=== PATIENT | male | born 1995 | race Caucasian/White ===

== ENCOUNTER 2017-08-13 14:44 | Observation (INO) ==
[2017-08-13] MEDS ORDERED: *HR* LORazepam 2 MG/ML VIAL IM ONE ×2 (15:00→16:07)
--- NOTE | 2017-08-13 15:04 | Emergency Department Note ---
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, hypnotic or anxiolytic dependence with withdrawal with perceptual disturbance Disposition: Admitted As Inpatient Condition: Fair Referrals: NONE,PCP [Primary Care Provider] - Forms: ED Satisfaction Letter Time of Disposition: 17:56 Psych HPI - General Chief Complaint: ED Psychiatric Symptoms Stated Complaint: psych/Chest Pain Time Seen by Provider: 08/13/17 14:54 Source: patient Mode of arrival: ambulatory Limitations: altered mental status Nursing Notes Reviewed: Yes Vital Signs Reviewed: Yes - History of Present Illness HPI Narrative: 22-year-old with a previous history of traumatic brain injury when he was 13 comes in stating that he has had rapid R chest pain when he discuss it with him he says his heart pounding family members here states he's been on nerve pills for quite some time and probably ran out about 4 days ago. When he takes a next door Ativan. He presents now for evaluation. He should has also had auditory hallucinations. Pt complaint: anxiety, medical clearance request, heart racing If medical clearance, reason: psychiatric condition Onset (ago): day(s) Duration: constant (3) History of similar episodes: No Improves with: none Worsens with: none Context: significant life stressor Alleged intoxication: No Associated Psychiatric Symptoms: racing thoughts, visual hallucinations, anxiety Associated symptoms: Reports: other (Chest pain) Treatments prior to arrival: none - Related Data Allergies Allergy/AdvReac Type Severity Reaction Status Date / Time No Known Allergies Allergy Verified 08/13/17 14:52 All systems ED: reviewed and negative except as stated. Constitutional: Denies: fever, chills, weakness, weight change Eyes: Denies: eye pain, eye discharge, vision change ENT ED: Denies: ear pain, throat pain, dental pain, hearing loss, epistaxis, congestion, dysphagia Cardiovascular: Reports: chest pain, palpitations. Denies: dyspnea on exertion , edema, syncope Respiratory: Denies: cough, dyspnea, wheezes, hemoptysis, stridor Gastrointestinal: Denies: abdominal pain, nausea, vomiting, diarrhea, constipation, hematemesis, melena, hematochezia Genitourinary: Denies: urgency, dysuria, frequency, hematuria Musculoskeletal: Denies: back pain, neck pain, arthralgia, myalgia Integumentary: Denies: rash, abrasion, lesions Neurological: Denies: headache, weakness, numbness, paresthesias, confusion, abnormal gait, vertigo Psychiatric: Reports: anxiety, visual hallucinations. Denies: depression, suicidal thoughts, homicidal thoughts, auditory hallucinations Endocrine: Denies: fatigue Hematological/Lymphatic: Denies: easy bleeding, easy bruising Allergic/Immunologic: Denies: facial swelling, urticaria Past Medical History - Past Medical History Medical history: Reports: other Psychiatric history: Reports: anxiety - Social History Smoking Status: Current every day smoker Alcohol use: Reports: none Drug use: Reports: marijuana, prescription drug abuse Physical Exam - General Limitations: altered mental status General appearance: alert, in no apparent distress - Head Head exam: atraumatic, normocephalic, normal inspection - Eye Eye exam: Present: normal appearance, PERRL, EOMI - ENT ENT exam: normal exam, normal oropharynx, mucous membranes moist - Neck Neck exam: Present: normal inspection, full ROM, trachea midline - Chest Chest inspection: Present: normal inspection, symmetric chest wall rise - Respiratory Respiratory exam: Present: normal lung sounds bilaterally - Cardiovascular Cardiovascular exam: Present: regular rate, normal rhythm, normal heart sounds - Abdominal Exam Abdominal exam: Present: soft, Non-Tender. Absent: tenderness, distention, guarding, rebound, rigidity - Extremities Exam Extremities exam: Present: normal inspection, full ROM. Absent: tenderness, pedal edema - Expanded Lower Extremity Exam Neurovascular/Tendon exam: Absent: motor deficit, sensory deficit, tendon deficit Gait: not tested/not observed - Back Exam Back exam: Present: normal inspection, full ROM. Absent: tenderness - Neurological Exam Neurological exam: Present: alert, oriented X3 - Psychiatric Psychiatric exam: Present: normal affect, normal mood - Skin Skin exam: Present: warm, dry, intact, normal color Course - Reevaluation(s) Reevaluation #1: 22-year-old with history of benzodiazepine abuse who comes in not having benzos for about 4 days she's tachycardic and very anxious and jittery. Did respond to some IV Ativan here and admit him to try to wean him off the benzos. Time: 17:55 - Consultations Consultation #1: Discussed with callie Zhou. Time: 17:56 Vital Signs Temperature 97.5 F L 08/13/17 14:47 Pulse Rate 121 08/13/17 14:47 Respiratory Rate 16 08/13/17 14:47 Blood Pressure 142/91 08/13/17 14:47 O2 Sat by Pulse Oximetry 97 08/13/17 14:47 Temperature 97.5 F L 08/13/17 14:47 Pulse Rate 94 08/13/17 16:29 Respiratory Rate 14 08/13/17 16:29 Blood Pressure 123/81 08/13/17 16:29 O2 Sat by Pulse Oximetry 100 08/13/17 16:29 Oxygen Delivery Oxygen Delivery Room Air Psych - Lab Data Lab results reviewed: Yes I reviewed the patient's lab results. Result diagrams: 08/13/17 15:38 08/13/17 15:38 Lab Results 08/13/17 08/13/17 08/13/17 Range/Units 15:15 15:15 15:38 WBC 8.9 (4.3-11.1) K/mcL RBC 4.55 (4.19-5.50) M/mcL Hgb 13.0 (12.9-16.9) g/dL Hct 41.3 (37.5-50.1) % MCV 90.8 (83.0-100.0) fL MCH 28.6 (28.0-33.3) pg MCHC 31.5 L (31.6-35.5) g/dL RDW 13.1 (11.5-14.5) % Plt Count 159 (140-400) K/mcL MPV 11.6 (9.4-12.4) fL Immature Gran % 0.2 (0-4) % Seg Neutrophils % 71.3 % Lymphocytes % 20.7 % Monocytes % 7.5 % Eosinophils % 0.1 % Basophils % 0.2 % Neutrophils # 6.3 (1.6-8.9) K/mcL Lymphocytes # 1.8 (0.6-4.6) K/mcL Monocytes # 0.7 (0.0-1.3) K/mcL Eosinophils # 0.0 (0.0-0.6) K/mcL Basophils # 0.0 (0.0-0.2) K/mcL Sodium (136-145) mEq/L Potassium (3.5-4.5) mEq/L Chloride (98-109) mEq/L Carbon Dioxide (19-29) mEq/L BUN (8-26) mg/dL Creatinine (0.72-1.25) mg/dL Est GFR ( Amer) (> 60) Est GFR (Non-Af Amer) (> 60) BUN/Creatinine Ratio (6-26) Glucose (70-99) mg/dL Calculated Osmolality (280-300) Calcium (8.6-10.8) mg/dL Total Bilirubin (0.2-1.2) mg/dL Direct Bilirubin (0.0-0.5) mg/dL Indirect Bilirubin (0.0-1.2) mg/dL AST (5-34) Units/L ALT (0-55) Units/L Alkaline Phosphatase (38-126) Units/L Troponin I (0-0.03) ng/mL Serum Total Protein (6.0-8.3) g/dL Albumin (3.5-5.0) g/dL Globulin (2.4-3.5) g/dL Albumin/Globulin Ratio (1.1-2.2) Urine Color Dark Yellow (Yellow) Urine Clarity Clear (Clear) Urine pH 6.5 (5.0-8.0) pH Units Ur Specific [place] > 1.030 H (1.010-1.025) Urine Protein 30 H (Neg-Trace) mg/dL Urine Glucose (UA) Normal (Normal) mg/dL Urine Ketones 15 H (Negative) mg/dL Urine Blood Negative (Negative) Urine Nitrite Negative (Negative) Urine Bilirubin Small H (Negative) Urine Urobilinogen Normal (Normal) mg/dL Ur Leukocyte Esterase Negative (Negative) Urine Microscopic RBC 3-5 H (0-3) per hpf Urine Microscopic WBC 0-3 (0-3) per hpf Ur Squamous Epith Cells Moderate H (None-Few) per lpf Urine Bacteria None Seen (None-Few) per hpf Hyaline Casts None Seen (None-Few) per lpf Salicylates (15-30) mg/dL Urine Opiates Screen Negative (Lfbswy=665) ng/mL Acetaminophen (10-30) mcg/mL Ur Barbiturates Screen Negative (Cxtnru=655) ng/mL Ur Phencyclidine Scrn Negative (Cutoff=25) ng/mL Ur Amphetamines Screen Negative (Peaehn=0137) ng/mL U Benzodiazepines Scrn Positive H (Kogwdu=604) ng/mL Urine Cocaine Screen Negative (Cutoff= 300) ng/mL U Marijuana (THC) Screen Positive H (Cutoff = 50) ng/mL Ethyl Alcohol (0-10) mg/dL 08/13/17 08/13/17 Range/Units 15:38 15:38 WBC (4.3-11.1) K/mcL RBC (4.19-5.50) M/mcL Hgb (12.9-16.9) g/dL Hct (37.5-50.1) % MCV (83.0-100.0) fL MCH (28.0-33.3) pg MCHC (31.6-35.5) g/dL RDW (11.5-14.5) % Plt Count (140-400) K/mcL MPV (9.4-12.4) fL Immature Gran % (0-4) % Seg Neutrophils % % Lymphocytes % % Monocytes % % Eosinophils % % Basophils % % Neutrophils # (1.6-8.9) K/mcL Lymphocytes # (0.6-4.6) K/mcL Monocytes # (0.0-1.3) K/mcL Eosinophils # (0.0-0.6) K/mcL Basophils # (0.0-0.2) K/mcL Sodium 138 (136-145) mEq/L Potassium 3.5 (3.5-4.5) mEq/L Chloride 104 (98-109) mEq/L Carbon Dioxide 22 (19-29) mEq/L BUN 15 (8-26) mg/dL Creatinine 0.69 L (0.72-1.25) mg/dL Est GFR ( Amer) > 60 (> 60) Est GFR (Non-Af Amer) > 60 (> 60) BUN/Creatinine Ratio 22 (6-26) Glucose 83 (70-99) mg/dL Calculated Osmolality 286 (280-300) Calcium 9.1 (8.6-10.8) mg/dL Total Bilirubin 0.4 (0.2-1.2) mg/dL Direct Bilirubin 0.2 (0.0-0.5) mg/dL Indirect Bilirubin 0.2 (0.0-1.2) mg/dL AST 27 (5-34) Units/L ALT 33 (0-55) Units/L Alkaline Phosphatase 83 (38-126) Units/L Troponin I 0.00 (0-0.03) ng/mL Serum Total Protein 7.3 (6.0-8.3) g/dL Albumin 4.0 (3.5-5.0) g/dL Globulin 3.3 (2.4-3.5) g/dL Albumin/Globulin Ratio 1.2 (1.1-2.2) Urine Color (Yellow) Urine Clarity (Clear) Urine pH (5.0-8.0) pH Units Ur Specific [place] (1.010-1.025) Urine Protein (Neg-Trace) mg/dL Urine Glucose (UA) (Normal) mg/dL Urine Ketones (Negative) mg/dL Urine Blood (Negative) Urine Nitrite (Negative) Urine Bilirubin (Negative) Urine Urobilinogen (Normal) mg/dL Ur Leukocyte Esterase (Negative) Urine Microscopic RBC (0-3) per hpf Urine Microscopic WBC (0-3) per hpf Ur Squamous Epith Cells (None-Few) per lpf Urine Bacteria (None-Few) per hpf Hyaline Casts (None-Few) per lpf Salicylates < 5.0 L (15-30) mg/dL Urine Opiates Screen (Hczlay=912) ng/mL Acetaminophen < 1.0 L (10-30) mcg/mL Ur Barbiturates Screen (Btynte=905) ng/mL Ur Phencyclidine Scrn (Cutoff=25) ng/mL Ur Amphetamines Screen (Klaqjt=2215) ng/mL U Benzodiazepines Scrn (Puwzzj=102) ng/mL Urine Cocaine Screen (Cutoff= 300) ng/mL U Marijuana (THC) Screen (Cutoff = 50) ng/mL Ethyl Alcohol < 10 (0-10) mg/dL - Radiology Data Radiology results reviewed: Yes I reviewed the patient's radiology results. Chest X-Ray 08/13/17 14:56 IMPRESSION: No acute cardiopulmonary process. D/ / 08/13/2017 16:30:15 Ab Bejarano MD / [email or web address] Interpreting Provider: Ab Bejarano MD - EKG Data EKG attestation: Yes I reviewed and interpreted this EKG. EKG shows normal: sinus rhythm Rate: tachycardia Rhythm: NSR Interpretation: no acute changes Psychiatric Medical Clearance - Medical Clearance Checklist Medical History: No Social History Section defined Current Vitals: Last Vital Signs Temp 97.5 F L 08/13/17 14:47 Pulse 94 08/13/17 16:29 Resp 14 08/13/17 16:29 BP 123/81 08/13/17 16:29 Pulse Ox 100 08/13/17 16:29 Psychiatric Lab Panel: Drug Levels and Toxicity 08/13/17 08/13/17 15:15 15:38 Urine Opiates Screen Negative Acetaminophen < 1.0 L Ur Barbiturates Screen Negative Ur Phencyclidine Scrn Negative Ur Amphetamines Screen Negative U Benzodiazepines Scrn Positive H Urine Cocaine Screen Negative U Marijuana (THC) Screen Positive H Ethyl Alcohol < 10 Abnormal Labs: Abnormal lab results MCHC 31.5 g/dL (31.6-35.5) L 08/13/17 15:38 Creatinine 0.69 mg/dL (0.72-1.25) L 08/13/17 15:38 Ur Specific [place] > 1.030 (1.010-1.025) H 08/13/17 15:15 Urine Protein 30 mg/dL (Neg-Trace) H 08/13/17 15:15 Urine Ketones 15 mg/dL (Negative) H 08/13/17 15:15 Urine Bilirubin Small (Negative) H 08/13/17 15:15 Urine Microscopic RBC 3-5 per hpf (0-3) H 08/13/17 15:15 Ur Squamous Epith Cells Moderate per lpf (None-Few) H 08/13/17 15:15 Salicylates < 5.0 mg/dL (15-30) L 08/13/17 15:38 Acetaminophen < 1.0 mcg/mL (10-30) L 08/13/17 15:38 U Benzodiazepines Scrn Positive ng/mL (Dscpbw=150) H 08/13/17 15:15 U Marijuana (THC) Screen Positive ng/mL (Cutoff = 50) H 08/13/17 15:15 Statement of Medical Clearance: I have evaluated the patient, reviewed diagnostic information, and certify that the patient's medical condition is sufficiently stable that transfer to the psychiatric unit does not pose a significant risk of deterioration.
[2017-08-13 15:24] LABS: Bilirubin,Urine Small (Negative); Blood,Urine Negative (Negative); Clarity,Urine Clear (Clear); Color,Urine Dark Yellow (Yellow); Glucose,Urine (UA) Normal (Normal); Ketones,Urine 15 mg/dL (Negative); Leukocyte Esterase,Urine Negative (Negative); Nitrite,Urine Negative (Negative); PH,Urine 6.5 pH Units (5.0-8.0); Protein,Urine 30 mg/dL (Neg-Trace); Specific Gravity,Urine > 1.030 (1.010-1.025); Urobilinogen,Urine Normal (Normal)
[2017-08-13 15:26] LABS: Bacteria,Urine None Seen per hpf (None-Few); Hyaline Casts,Urine None Seen per lpf (None-Few); Squamous Epithelial Cell,Urine Moderate per lpf (None-Few); WBC,Urine 0-3 per hpf (0-3)
[2017-08-13 15:30] LABS: Amphetamine Screen,Urine Negative ng/mL (Cutoff=1000); Barbiturate Screen,Urine Negative ng/mL (Cutoff=200); Benzodiazepines Screen,Urine Positive ng/mL (Cutoff=200); Cannabinoid Screen,Urine Positive ng/mL (Cutoff = 50); Cocaine Screen,Urine Negative ng/mL (Cutoff= 300); Opiate Screen,Urine Negative ng/mL (Cutoff=300); Phencyclidine Screen,Urine Negative ng/mL (Cutoff=25)
[2017-08-13 15:45] LABS: Basophils % 0.2 %; Eosinophils % 0.1 %; Hematocrit 41.3 % (37.5-50.1); Immature Granulocytes % 0.2 % (0-4); Lymphocytes # 1.8 K/mcL (0.6-4.6); Lymphocytes % 20.7 %; Mean Corpuscular HGB Conc 31.5 g/dL (31.6-35.5); Mean Corpuscular Hemoglobin 28.6 pg (28.0-33.3); Mean Corpuscular Volume 90.8 fL (83.0-100.0); Mean Platelet Volume 11.6 fL (9.4-12.4); Monocytes # 0.7 K/mcL (0.0-1.3); Monocytes % 7.5 %; Neutrophils # 6.3 K/mcL (1.6-8.9); Platelet Count 159 K/mcL (140-400); Red Blood Count 4.55 M/mcL (4.19-5.50); Red Cell Distribution Width 13.1 % (11.5-14.5); Segmented Neutrophils % 71.3 %
[2017-08-13] MEDS ORDERED: Acetaminophen 325 MG TABLET PO ONE (15:55)
[2017-08-13 16:01] LABS: Alanine Aminotransferase 33 Units/L (0-55); Albumin/Globulin Ratio 1.2 (1.1-2.2); Alkaline Phosphatase 83 Units/L (38-126); Aspartate Amino Transferase 27 Units/L (5-34); BUN/Creatinine Ratio 22 (6-26); Bilirubin,Direct 0.2 mg/dL (0.0-0.5); Bilirubin,Indirect 0.2 mg/dL (0.0-1.2); Bilirubin,Total 0.4 mg/dL (0.2-1.2); Blood Urea Nitrogen 15 mg/dL (8-26); Calcium 9.1 mg/dL (8.6-10.8); Carbon Dioxide 22 mEq/L (19-29); Chloride 104 mEq/L (98-109); Globulin 3.3 g/dL (2.4-3.5); Glucose 83 mg/dL (70-99); Osmolality,Calculated 286 (280-300); Potassium 3.5 mEq/L (3.5-4.5); Sodium 138 mEq/L (136-145); Total Protein 7.3 g/dL (6.0-8.3); eGFR For African Americans > 60 (> 60); eGFR For Non-African Americans > 60 (> 60)
[2017-08-13 16:02] LABS: Acetaminophen < 1.0 mcg/mL (10-30); Ethanol < 10 mg/dL (0-10); Salicylate < 5.0 mg/dL (15-30)
[2017-08-13] MEDS ORDERED: Naloxone 0.4 MG/ML INJ IVP PRN (20:08)
[2017-08-13] MEDS ORDERED: Ondansetron 4 MG/2 ML VIAL IVP PRN (20:08)
[2017-08-13] MEDS ORDERED: Acetaminophen 325 MG TABLET PO PRN (20:08)
[2017-08-13 20:12] VITALS: BP 127/81
--- NOTE | 2017-08-13 20:27 | Internal Med History&Physical ---
Date of Encounter: 08/16/17 Time of Encounter: 20:26 Assessment and Plan (1) Benzodiazepine withdrawal Status: Acute 1 patient history of benzodiazepine abuse has gone through detox 2 times this year. Abruptly stop taking Xanax 2 days ago. He has been experiencing paranoia , auditory hallucinations tachycardia and anxiety. 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 Solano is a 22 year old male past medical history of traumatic brain injury 2013, drug abuse, tobacco abuse previous IV drug user. According to patient he has been through drug rehabilitation twice this year. Most recently approximately a month ago. He has been clean up until about 2 weeks ago when he restarted using Xanax which he finds [address] street. He attempted to stop using Xanax and has not taken it for the past 2 days. According to the father he has been experiencing anxiety, feeling as if his heart is racing requesting that he checked his pulse every 5 minutes states he is having heart attack. He has also been experiencing auditory hallucinations the patient states voices tell him to do things like playing his video games they also tell him that his food is poisoned. His father states he has not been eating for the past 2 days because he thinks his food is poisoned. According to the father last 2 times he went through benzo withdrawal he went into a catatonic and was sent to [facility]. According to ER patient's lab work was unremarkable troponin was 0 drug screen was positive for marijuana as well as benzodiazepine however he was given Ativan in the ER. EKG was sinus tachycardia with no ST-T wave abnormalities noted. He has hemodynamically stable this time. Presently the patient has a flat affect he is alert and appropriate following simple commands he denies any suicidal or homicidal ideations at this time auditory hallucinations at this time I did review his case with Dr. Cunha who agrees with plan. Past Med Surg Social Fam HX - Past Medical History Medical history: other Psychiatric history: anxiety - Social History Smoking Status: Current every day smoker Alcohol use: none Drug use: marijuana, prescription drug abuse - Family History Mother Hx Family Cardiac Disorders: Yes (HTN) Hx Family Endocrine Disorder: Yes (pre-DM) Hx Family Neurologic Disorders: Yes (dementia) Internal Medicine - H&P: Meds 3 Allergy/AdvReac Type Severity Reaction Status Date / Time No Known Allergies Allergy Verified 08/13/17 14:52 All Systems PM: A 10-system review of systems was performed and is negative for pertinent findings except as documented above in the HPI. - Constitutional Constitutional: no chills, no fever(s), no night sweats - EENT Eyes: no change in vision, no discharge, no pain, no photophobia Nose, mouth and throat: no dysphagia, no nasal discharge, no neck pain, no sore throat - Cardiovascular Cardiovascular ROS IM: chest pain, edema, no diaphoresis, no dyspnea, no lightheadedness, no palpitations, no syncope - Respiratory Respiratory: no cough, no dyspnea, no wheezing, no excessive phlegm production - Gastrointestinal Gastrointestinal: no abdominal pain, no diarrhea, no hematemesis, no hematochezia, no melena, no nausea, no vomiting - Musculoskeletal Musculoskeletal ROS IM: no numbness, no tingling - Integumentary Integumentary IM: no rash, no unusual bruising - Neurological Neurological ROS: no confusion, no convulsions, no focal weakness, no numbness, no tingling, no tremor(s) - Hematologic/Lymphatic Hematologic/Lymphatic: no easy bruising - Constitutional Vitals: Temp Pulse Resp BP Pulse Ox 97.7 F 95 16 127/81 100 08/13/17 20:11 08/13/17 20:11 08/13/17 20:11 08/13/17 20:11 08/13/17 20:11 General appearance: Present: A&O X 3, answers questions appropriately - Head Head exam: Present: atraumatic, normocephalic - Eye Eye exam: Present: PERRL, conjuntiva pink, sclera anicteric Pupils: Present: PERRL - Neck Neck exam general surgery: Present: supple, trachea midline. Absent: lymphadenopathy - Respiratory Respiratory exam: Present: CTAB. Absent: accessory muscle use, rales, rhonchi, wheezes - Cardiovascular Cardiovascular exam: Present: RRR, +S1, +S2. Absent: diastolic murmur, gallop, rubs, systolic murmur - GI/Abdominal GI/Abdominal exam: Present: normal bowel sounds, soft, no peritoneal signs. Absent: distended, tenderness - Extremities Exam Extremities exam: Present: warm, radial pulses palpable and symmetrical. Absent : calf tenderness, cyanotic, pedal edema - Neurological Exam Neurological exam: Present: CN II-XII intact, oriented X3, no focal deficits. Absent: pronater drift, facial droop, speech deficit - Psychiatric Psychiatric exam: Present: anxious, flat affect - Skin Skin exam: Present: dry, intact Internal Med - H&P Results - Labs CBC & Chem 7: 08/13/17 15:38 08/13/17 15:38 - EKG Data EKG shows normal: sinus rhythm - EKG Data Prior EKG available for review: no - Diagnostic Studies Other Images Additional comments: Chest X-Ray 08/13/17 14:56 IMPRESSION: No acute cardiopulmonary process. D/ / 08/13/2017 16:30:15 Ab Bejarano MD / [email or web address] Interpreting Provider: Ab Bejarano MD
[2017-08-13] MEDS ORDERED: Nicotine 21 MG PATCH.TD24 TD SCH (20:30)
[2017-08-13] MEDS ORDERED: *HR* LORazepam 2 MG/ML VIAL IVP PRN (20:42)
[2017-08-13] MEDS ORDERED: Neosporin OINT 15 GM TUBE TP SCH (21:00)
[2017-08-13] MEDS ORDERED: ARIPiprazole 10 MG TABLET PO SCH (21:00)
--- NOTE | 2017-08-14 02:34 | Discharge Summary ---
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, hypnotic or anxiolytic dependence with withdrawal with perceptual disturbance (2) DVT prophylaxis Priority: Secondary Status: Acute (3) Tobacco abuse Priority: Secondary Status: Acute - Discharge Medications Allergies/Adverse Reactions: 3 Allergy/AdvReac Type Severity Reaction Status Date / Time No Known Allergies Allergy Verified 08/13/17 14:52 Date of admission: 08/13/17 18:09 Primary care physician: PCP NONE Consults: 08/13/17 20:[address] [employer]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 Solano is a 22 year old male with history of benzo abuse admitted for benzo withdrawal. Patient was given ativan in emergency room and his withdrawal symptoms has resolved. I was called by nurse that the patient wants to sign AMA to leave. I saw patient at bedside, patient's father also at the bedside. I explained patient the risk of withdrawal. As he has no benzo medication available, he may have withdrawal symptoms again, which will be life threatening. Patient is awake, alert and fully oriented. He said he understands the risk can be "" but still want to sign AMA to leave. I also explained to him as he has benzo abuse history, we cannot give him any prescription. He fully understand the risk of leaving with AMA but still insisted to leave. Finally, he signed AMA and left. Conversation witnessed by patient's father. - Time Spent with Patient Total time spent providing and/or coordinating discharge services:25 min Less than 30 minutes - Constitutional Vitals: Temp Pulse Resp BP Pulse Ox 97.7 F 95 16 127/81 100 08/13/17 20:11 08/13/17 20:11 08/13/17 20:11 08/13/17 20:11 08/13/17 20:11 General appearance: Present: A&O X 3, answers questions appropriately
[2017-08-14] MEDS ORDERED: Pantoprazole 40 MG VIAL IVP SCH (09:00)
--- NOTE | 2017-08-15 06:33 | Electrocardiograph Report ---
[place] [id number] Test Date: 2017-08-13 Pat Name: Tj Solano Department: 103 Room: 3B23 Gender: M Sack Filler: : 1995 Requested By: Wong Landeros Order Number: [id number] Reading MD: Ortega Sandoval MD Measurements Intervals [place] Rate: 118 P: 19 [place]: 160 QRS: 10 QRSD: 101 T: 5 QT: 325 QTc: 395 Interpretive Statements SINUS TACHYCARDIA NORMAL SINUS RHYTHM Electronically Signed On 08-15-2017 6:31:55 EDT by Ortega Sandoval MD
== END 2017-08-13 22:41 | disposition left against medical advice (07) ==
LOC: EMEROO 14:44 → 3BNU 14:44
PROVIDERS: ADMIT Nurse Practitioner Acute Care; ATTEND Registered Nurse